=== PATIENT | female | born 1950 | race African-American/Black ===

== ENCOUNTER 2016-05-28 09:30 | Outpatient (RCR) | payer OTHER | END 2016-06-09 | disposition home or self-care (01) | LOC: PTY 09:30 | PROVIDERS: ATTEND Internal Medicine | DX: M25.512 Pain in left shoulder (principal); G89.29 Other chronic pain | CPT/HCPCS: 97110; 97140; 97161; G0283 ==

== ENCOUNTER 2016-06-16 11:06 | Outpatient (RCR) | payer OTHER | END 2016-07-07 | disposition home or self-care (01) | LOC: PTY 11:06 | PROVIDERS: ATTEND Internal Medicine | DX: M25.512 Pain in left shoulder (principal); G89.29 Other chronic pain | CPT/HCPCS: 97110; 97140; G0283 ==

== ENCOUNTER 2016-07-14 10:00 | Outpatient (RCR) | payer OTHER | END 2016-08-07 | disposition home or self-care (01) | LOC: PTY 10:00 | PROVIDERS: ATTEND Internal Medicine | DX: M25.512 Pain in left shoulder (principal); G89.29 Other chronic pain | CPT/HCPCS: 97110; 97140; G0283 ==

== ENCOUNTER 2016-09-22 14:00 | Outpatient (RCR) | payer OTHER | END 2016-10-07 | disposition home or self-care (01) | LOC: PTY 14:00 | DX: M54.16 Radiculopathy, lumbar region (principal); M53.3 Sacrococcygeal disorders, not elsewhere classified; M25.512 Pain in left shoulder; G89.29 Other chronic pain; M75.42 Impingement syndrome of left shoulder | CPT/HCPCS: 97035; 97110; 97140; 97162; G0283 ==

== ENCOUNTER 2016-10-22 14:00 | Outpatient (RCR) | payer OTHER | END 2016-11-06 | disposition home or self-care (01) | LOC: PTY 14:00 | DX: M54.16 Radiculopathy, lumbar region (principal); G89.29 Other chronic pain; M25.512 Pain in left shoulder; M53.3 Sacrococcygeal disorders, not elsewhere classified | CPT/HCPCS: 97110; 97140; G0283 ==

== ENCOUNTER 2016-11-19 14:25 | Outpatient (RCR) | payer OTHER | END 2016-12-07 | disposition home or self-care (01) | LOC: PTY 14:25 | DX: M54.16 Radiculopathy, lumbar region (principal); M53.3 Sacrococcygeal disorders, not elsewhere classified | CPT/HCPCS: 97110; 97140; G0283 ==

== ENCOUNTER 2017-07-26 10:00 | Outpatient (RCR) | payer OTHER | END 2017-08-07 | disposition home or self-care (01) | LOC: PTY 10:00 | DX: M47.816 Spondylosis without myelopathy or radiculopathy, lumbar region (principal); M51.36 Other intervertebral disc degeneration, lumbar region ==

== ENCOUNTER 2017-08-09 10:35 | Outpatient (RCR) | payer OTHER | END 2017-09-06 | disposition home or self-care (01) | LOC: PTY 10:35 | DX: M47.816 Spondylosis without myelopathy or radiculopathy, lumbar region (principal); M51.36 Other intervertebral disc degeneration, lumbar region ==

== ENCOUNTER 2017-09-22 13:00 | Outpatient (RCR) | payer OTHER | END 2017-10-07 | disposition home or self-care (01) | LOC: PTY 13:00 | DX: M47.816 Spondylosis without myelopathy or radiculopathy, lumbar region (principal); M51.36 Other intervertebral disc degeneration, lumbar region ==